=== PATIENT | female | born 1975 | race Caucasian/White ===

== ENCOUNTER 2020-01-30 11:07 | Outpatient (REF) | payer MEDICAID, SELFPAY ==
--- NOTE | 2020-01-30 10:00 | PAPFT_PTH ---
PATIENT: Christi Harding LOC: [facility] U#:[id number] AGE/SX: 44/F ROOM: RE01/30/[address]: Brigette Krause NP : 1975 BED: DIS: 01/30/2020 SPEC #: [id number] RECD: 01/31/20 09:34 STATUS: ANANTH REJuan #: [id number] MENDEZ: 01/30/20 10:[address]: Brigette Krause NP DEPT: [facility] Cytology RECD BY: Monique Dorado Tissues: 1 - CX/ENDOCX FOR PAP SMEARS Procedures: PAP THIN PREP/[facility] Screening HPV DNA PROBE Comments: [id number]
== END 2020-01-30 11:27 ==
LOC: LBN 11:07
PROVIDERS: PCP Nurse Practitioner Women's Health; Visit Provider Nurse Practitioner Women's Health
DX: R87.616 Satisfactory cervical smear but lacking transformation zone (principal); Z11.51 Encounter for screening for human papillomavirus (HPV)
CPT/HCPCS: 88142; 87624

== ENCOUNTER 2020-02-06 02:03 | Outpatient (CLI) | payer MEDICAID, SELFPAY ==
[2020-02-06 10:27] LABS: TSH (W/Ref FT4) 0.46 uIU/mL (0.36-3.74)
[2020-02-06 18:56] LABS: FSH 59.7 mIU/mL (See Note); LH 26.8 mIU/mL (See Note); Prolactin 6.4 ng/mL (See Table)
[2020-02-07 07:06] LABS: Vitamin D 25 Total 95.8 ng/ml (30-100)
[2020-02-08 14:53] LABS: Antimullerian Hormone <0.1 ng/mL (0.9-9.5)
[2020-02-09 11:23] LABS: Testosterone, Total 14 ng/dL (8-60)
== END 2020-02-06 02:23 ==
PROVIDERS: PCP Nurse Practitioner Women's Health; Visit Provider Nurse Practitioner Women's Health
DX: R63.4 Abnormal weight loss (principal); N92.5 Other specified irregular menstruation
CPT/HCPCS: 36415; 82306; 84402; 84403; 83001; 83002; 83520; 84146; 84443

== ENCOUNTER 2020-02-25 01:29 | Outpatient (CLI) | payer MEDICAID, SELFPAY ==
--- NOTE | 2020-02-25 08:00 | DI.US_ITS ---
EXAM: US PELVIS TRANSVAGINAL CLINICAL HISTORY: postmenopausal bleeding,n95.0 TECHNIQUE: Transabdominal and transvaginal imaging was performed using standard protocol. COMPARISON: No exams were available for comparison FINDINGS: UTERUS: Anteverted. 7.8 x 4.1 x 4.6 cm Endometrium: 9 millimeters, homogeneous. Myometrium: Unremarkable. No fibroids. Cervix: Small amount of fluid in the cervical canal. Question of a small polyp 4 x 2 millimeters. OVARIES: Right: Cyst or mass: Small cysts or follicles. Left: Cyst or mass: Small cysts or follicles, the largest measuring 1.4 cm. DOPPLER: Color: Symmetric and uniform flow to both ovaries. No hyperemia. Duplex: Normal ovarian arterial waveforms visualized. CUL-DE-SAC: Free fluid: None. IMPRESSION: 1. Question of a small cervical polyp. The endometrial stripe is thickened for a postmenopausal andrey ent at 9 millimeters. 2. Unremarkable bilateral ovaries. DATA REPOSITORY:
== END 2020-02-25 01:49 ==
PROVIDERS: PCP Nurse Practitioner Women's Health; Visit Provider Obstetrics & Gynecology
DX: N95.0 Postmenopausal bleeding (principal)
CPT/HCPCS: 76830; 76856

== ENCOUNTER 2020-03-28 11:50 | Outpatient (REF) | payer MEDICAID, SELFPAY ==
[2020-03-28 20:42] LABS: Abs Immature Grans 0.01 10^3/uL (0.0-0.06); Absolute Basophil Count 0.02 10^3/uL (0.0-0.2); Absolute Eosinophil Count 0.06 10^3/uL (0.0-0.7); Absolute Lymphocyte Count 1.13 10^3/uL (1.2-3.4); Absolute Monocyte Count 0.24 10^3/uL (0.1-0.8); Absolute Neutrophil Count 1.99 10^3/uL (1.2-6.7); Basophils % 0.6; Eosinophils % 1.7; HCT 41.1 % (36.0-46.0); HGB 13.3 g/dL (11.2-15.7); Immature Grans % 0.3; Lymphocytes % 32.8; MCH 29.7 pg (27.0-33.0); MCHC 32.4 % (32.0-36.0); MCV 91.7 fL (80-95); MPV 11.2 fL (8.0-11.0); Neutrophils % 57.6; Nucleated RBC 0 %; Platelet Count 150 10^3/uL (130-400); RBC 4.48 10^6/uL (3.93-5.22); RDW 13.2 % (11.7-14.6); RDW-SD 44.6 fL; WBC 3.45 10^3/uL (4.4-10.8)
[2020-03-28 21:05] LABS: Anion Gap 9.2 mmol/L (3-11); BUN 16 mg/dL (7-18); CO2 26.8 mmol/L (21.0-32.0); CREATININE 0.69 mg/dL (0.55-1.02); Calcium 8.8 mg/dL (8.5-10.1); Chloride 104 mmol/L (98-107); Cholesterol 234 mg/dL (<200); Glucose 83 mg/dL (74-106); HDL Cholesterol 129 mg/dL (40-60); Potassium 4.2 mmol/L (3.5-5.1); Sodium 140 mmol/L (136-145)
[2020-03-28 21:12] LABS: Triglyceride < 25 mg/dL (<150)
[2020-03-28 21:35] LABS: LDL CHOLESTEROL 96 mg/dL (<100)
== END 2020-03-28 12:10 ==
LOC: NCHCN 11:50
PROVIDERS: PCP Nurse Practitioner Women's Health; Visit Provider Nurse Practitioner Family
DX: Z00.00 Encounter for general adult medical examination without abnormal findings (principal); R23.8 Other skin changes
CPT/HCPCS: 80048; 80061; 83721; 85025

== ENCOUNTER 2021-08-14 17:00 | Outpatient (REF) | payer MEDICAID, SELFPAY ==
[2021-08-14 14:44] LABS: HCT 40.5 % (36.0-46.0); MCH 29.5 pg (27.0-33.0); MCHC 32.1 % (32.0-36.0); MCV 91.8 fL (80-95); MPV 11.5 fL (8.0-11.0); Platelet Count 154 10^3/uL (130-400); RBC 4.41 10^6/uL (3.93-5.22); RDW 12.7 % (11.7-14.6); RDW-SD 43.1 fL; WBC 3.02 10^3/uL (4.4-10.8)
[2021-08-14 14:54] LABS: Anion Gap 7.6 mmol/L (3-11); BUN 9 mg/dL (7-18); CO2 28.4 mmol/L (21.0-32.0); CREATININE 0.7 mg/dL (0.55-1.02); Calcium 9.2 mg/dL (8.5-10.1); Chloride 105 mmol/L (98-107); Glucose 83 mg/dL (74-106); Potassium 5.5 mmol/L (3.5-5.1); Sodium 141 mmol/L (136-145)
[2021-08-14 22:06] LABS: Estradiol 189 pg/mL (See Note); Progesterone 2.6 ng/mL (See Table)
[2021-08-14 22:17] LABS: FSH 39.8 mIU/mL (See Note)
== END 2021-08-14 17:01 | disposition home or self-care (01) ==
LOC: NCHCN 17:00
PROVIDERS: PCP Nurse Practitioner Women's Health; Visit Provider Nurse Practitioner Family
DX: R23.8 Other skin changes (principal); Z31.41 Encounter for fertility testing
CPT/HCPCS: 80048; 85027; 82670; 83001; 84144; 84146

== ENCOUNTER 2022-01-06 18:44 | Outpatient (REF) | payer MEDICAID, SELFPAY ==
[2022-01-06 19:06] LABS: Bilirubin Negative (Negative); Blood Small (Negative); Clarity Clear (Clear); Glucose Negative (Negative); Ketones Negative (Negative); Leukocyte Esterase Negative (Negative); Nitrite Negative (Negative); Specific Gravity 1.015 (1.005-1.025); Urobilinogen 0.2 EU/dL (Up TO 0.2)
[2022-01-06 19:45] LABS: Bacteria Negative HPF (Negative); C & S Indicated? Yes; Crystals Negative HPF (Negative); Epithelial Cells Moderate HPF (Negative); Mucus Negative (Negative); Other Cells Few Transitional (Negative); RBC 0-2 HPF (0-2)
== END 2022-01-06 18:45 | disposition home or self-care (01) ==
LOC: NCHCN 18:44
PROVIDERS: PCP Nurse Practitioner Women's Health; Visit Provider Nurse Practitioner Family
DX: N39.0 Urinary tract infection, site not specified (principal)
CPT/HCPCS: 81003; 81015; 87086

== ENCOUNTER 2022-07-21 10:07 | Outpatient (REF) | payer MEDICAID, SELFPAY ==
[2022-07-21 16:23] LABS: ALT 29 U/L (14-59); AST 17 U/L (15-37); Alkaline Phosphatase 61 U/L (46-116); BUN 13 mg/dL (7-18); Bilirubin, Total 0.5 mg/dL (0.2-1.0); CREATININE 0.7 mg/dL (0.55-1.02); Calcium 9.4 mg/dL (8.5-10.1); Chloride 105 mmol/L (98-107); Cholesterol 312 mg/dL (<200); Estimated GFR 107.95 (mL/min/1.73m2); Glucose 100 mg/dL (74-106); Potassium 4.3 mmol/L (3.5-5.1); Sodium 143 mmol/L (136-145)
[2022-07-21 16:24] LABS: Triglyceride < 25 mg/dL (<150)
[2022-07-21 16:38] LABS: HDL Cholesterol 147 mg/dL (40-60)
[2022-07-22 08:47] LABS: LDL CHOLESTEROL 146 mg/dL (<100)
[2022-07-22 11:47] LABS: TSH (W/Ref FT4) 0.64 uIU/mL (0.36-3.74)
== END 2022-07-21 10:08 | disposition home or self-care (01) ==
LOC: NCHCN 10:07
PROVIDERS: PCP Nurse Practitioner Women's Health; Visit Provider Family Medicine
DX: Z13.228 Encounter for screening for other metabolic disorders (principal); Z13.29 Encounter for screening for other suspected endocrine disorder; Z00.00 Encounter for general adult medical examination without abnormal findings; E78.89 Other lipoprotein metabolism disorders
CPT/HCPCS: 80053; 80061; 83721; 84443

== ENCOUNTER 2022-10-13 10:39 | Outpatient (REF) | payer MEDICAID, SELFPAY ==
--- NOTE | 2022-10-13 09:20 | PAPFT_PTH ---
PATIENT: Christi Harding LOC: [facility] U#:[id number] AGE/SX: 47/F ROOM: RE10/13/[address]: Brigette Krause NP : 1975 BED: DIS: 10/13/2022 SPEC #: [id number] RECD: 10/13/22 13:14 STATUS: ANANTH RODRÍGUEZ #: [id number] MENDEZ: 10/13/22 09:[address]: Brigette Krause NP DEPT: [facility] Cytology RECD BY: Faith Redd Tissues: 1 - CX/ENDOCX FOR PAP SMEARS Procedures: PAP THIN PREP/UVM Screening HPV DNA PROBE Comments: [id number]
== END 2022-10-13 10:40 | disposition home or self-care (01) ==
LOC: LBN 10:39
PROVIDERS: PCP Nurse Practitioner Women's Health; Visit Provider Nurse Practitioner Women's Health
DX: Z12.4 Encounter for screening for malignant neoplasm of cervix (principal); Z11.51 Encounter for screening for human papillomavirus (HPV)
CPT/HCPCS: 88142; 87624

== ENCOUNTER 2023-08-08 11:09 | Outpatient (REF) | payer MEDICAID, SELFPAY ==
[2023-08-08 15:45] LABS: Abs Immature Grans 0.01 10^3/uL (0.0-0.06); Absolute Basophil Count 0.03 10^3/uL (0.0-0.2); Absolute Eosinophil Count 0.13 10^3/uL (0.0-0.7); Absolute Monocyte Count 0.21 10^3/uL (0.1-0.8); Absolute Neutrophil Count 1.68 10^3/uL (1.2-6.7); Eosinophils % 4.2; HCT 39.6 % (36.0-46.0); HGB 13.1 g/dL (11.2-15.7); Immature Grans % 0.3; Lymphocytes % 32.7; MCH 29.6 pg (27.0-33.0); MCHC 33.1 % (32.0-36.0); MCV 89 fL (80-95); MPV 11.4 fL (8.0-11.0); Monocytes % 6.9; Neutrophils % 54.9; Platelet Count 185 10^3/uL (130-400); RBC 4.43 10^6/uL (3.93-5.22); RDW 13.1 % (11.7-14.6); RDW-SD 42.9 fL; WBC 3.06 10^3/uL (4.4-10.8)
[2023-08-08 17:58] LABS: ALT 28 U/L (14-59); AST 13 U/L (15-37); Albumin 3.6 g/dL (3.4-5.0); Alkaline Phosphatase 56 U/L (46-116); Anion Gap 10.2 mmol/L (3-11); BUN 15 mg/dL (7-18); Bilirubin, Total 0.5 mg/dL (0.2-1.0); CO2 25.8 mmol/L (21.0-32.0); CREATININE 0.7 mg/dL (0.55-1.02); Calcium 9.3 mg/dL (8.5-10.1); Chloride 107 mmol/L (98-107); Estimated GFR 107.28 (mL/min/1.73m2); Glucose 90 mg/dL (74-106); Potassium 4.1 mmol/L (3.5-5.1); Sodium 143 mmol/L (136-145); TSH (W/Ref FT4) 0.43 uIU/mL (0.36-3.74); Total Protein 6.6 g/dL (6.4-8.2)
[2023-08-08 22:49] LABS: Estradiol 56 pg/mL (See Note); Progesterone 0.3 ng/mL (See Table)
[2023-08-08 22:58] LABS: FSH 102.1 mIU/mL (See Note)
== END 2023-08-08 11:10 | disposition home or self-care (01) ==
LOC: NCHCN 11:09
PROVIDERS: PCP Nurse Practitioner Women's Health; Visit Provider Family Medicine
DX: R53.83 Other fatigue (principal); E28.39 Other primary ovarian failure
CPT/HCPCS: 80053; 82670; 83001; 83002; 84144; 84443; 85025